=== PATIENT | female | born 1965 | race Two or more races ===

== ENCOUNTER → 2024-10-09 | Outpatient (CLI) | payer BC, SELFPAY ==
--- NOTE | 2024-10-09 14:30 | XR_ITS ---
Examination: Breast ultrasound, unilateral, left complete Date and time of exam: October 09, 2024 1430 hours INDICATIONS: Left breast sonogram May 16, 2024 12:00 nodule 5 mm 11:00 nodule 6 mm Technique: Real-time valle scale ultrasonographic imaging performed left breast including all 4 quadrants as well as nipple retroareolar and axillary region. Findings: 12:00 nodule circumscribed 6 x 5 mm 1:00 nodule lobular margins 7 x 6 mm IMPRESSION: BI-RADS Category 2: Benign findings
--- NOTE | 2024-10-09 15:00 | XR_ITS ---
Examination: Diagnostic digital mammography, unilateral, left Computer aided detection 3-D breast Tomosynthesis, unilateral Date and time of exam: October 09, 2024 1440 hours INDICATIONS: Mammogram May 16, 2024 focal asymmetry retroareolar region left breast Technique: Nonmagnified MLO, CC views of the left breast have been obtained, reconstructed from 3-D Tomosynthesis images. R2 computer aided detection program utilized for evaluation of suspicious masses and/or abnormal calcifications. 3-D Tomosynthesis images obtained. Findings: Scattered areas of fibroglandular density No suspicious mass depicted Impression: BI-RADS category 2: Benign findings Recommend yearly follow-up mammography
== END | disposition home or self-care (01) ==
PROVIDERS: PCP Specialist; Referring Provider Specialist; Visit Provider Specialist
DX: R92.322 Mammographic fibroglandular density, left breast (principal); N63.25 Unspecified lump in the left breast, overlapping quadrants; N63.21 Unspecified lump in the left breast, upper outer quadrant
CPT/HCPCS: 76641; 77061; 77065; G0279

== ENCOUNTER → 2025-04-21 | Outpatient (CLI) | payer BC, SELFPAY ==
[2025-04-21 11:28] LABS: Basophils # (Auto) 0.1 Thou/mm3 (0.0-0.2); Basophils % (Auto) 1 % (0-2.5); Eosinophils # (Auto) 0.3 Thou/mm3 (0.0-0.5); Eosinophils % (Auto) 5 % (0-10); Hematocrit 43.2 % (36.0-46.0); Hemoglobin 14.1 g/dL (12.0-16.0); Immature Granulocytes Auto 0.01 Thou/mm3 (0.00-0.00); Lymphocytes # (Auto) 2.8 Thou/mm3 (1.0-4.8); Lymphocytes % (Auto) 37 % (10-50); Mean Corpuscular HGB Conc 32.6 g/dl (31.0-37.0); Mean Corpuscular Hemoglobin 30.2 pg (25.0-35.0); Mean Corpuscular Volume 93 fL (80-100); Monocytes # (Auto) 0.6 Thou/mm3 (0.0-0.8); Monocytes % (Auto) 7 % (0-12); Neutrophils # (Auto) 3.7 Thou/mm3 (1.8-7.7); Neutrophils % (Auto) 50 % (37-80); Nucleated Red Blood Cell # 0.00 Thou/mm3 (0.00-0.00); Nucleated Red Blood Cell % 0 /100 WBC (0); Platelet Count 264 Thou/mm3 (140-440); RDW Standard Deviation 47.9 fL (36.4-46.3); Red Blood Count 4.67 Miln/mm3 (4.00-5.20); White Blood Count 7.5 Thou/mm3 (3.6-11.0)
[2025-04-21 11:38] LABS: Glucose Estimated Average 123 mg/dL (80-131); Hemoglobin A1C 5.9 % Hgb (4.8-6.0)
[2025-04-21 11:40] LABS: Iron 95 mcg/dL (50-170); Percent Iron Saturation 38 % (20-55); Total Iron Binding Capacity 245 mcg/dL (250-425); Unsaturated Iron Binding 150 (225-295)
[2025-04-21 11:41] LABS: Parathyroid Hormone Intact 251.7 pg/ml (18.5-88.0)
[2025-04-21 11:45] LABS: Alanine Aminotransferase 62 U/L (10-49); Albumin, Serum 4.4 gm/dL (3.4-4.8); Albumin/Globulin Ratio 1.5 (1.2-2.2); Alkaline Phosphatase 102 U/L (46-116); Anion Gap 10 (7-16); Aspartate Amino Transferase 42 U/L (0-34); BUN/Creatinine Ratio 9 Ratio (12-20); Bilirubin,Total 0.6 mg/dL (0.3-1.2); Blood Urea Nitrogen 12 mg/dL (9-23); Calcium 10.1 mg/dL (8.3-10.6); Calcium (Corrected) 10.1 mg/dL (8.5-10.1); Carbon Dioxide 26.7 mMol/L (20.0-31.0); Cardiac Risk Estimate 4.5 RATIO (3.7-5.6); Chloride 106 mMol/L (98-107); Cholesterol 206 mg/dL (132-200); Creatinine (Component) 1.3 mg/dL (0.6-1.3); Folate 15.13 ng/mL (>5.38); Globulin 3.0 gm/dL (2.3-3.5); Glucose 126 mg/dL (74-106); HDL Cholesterol 46 mg/dL (40-60); LDL Cholesterol,Calculated 121 mg/dL (0-130); Osmolality,Calculated 286 (275-295); Potassium 4.0 mMol/L (3.4-5.1); Sodium 143 mMol/L (136-145); Total Protein 7.4 gm/dL (5.7-8.2); Triglycerides 197 mg/dL (30-150); Vitamin B12 550 pg/mL (211-911); eGFR 47 See Note
[2025-04-24 06:24] LABS: Vitamin D, 25-OH, D2 <4 ng/mL; Vitamin D, 25-OH, D3 19 ng/mL; Vitamin D, 25-OH, Total 19 ng/mL (30-100)
== END | disposition home or self-care (01) ==
LOC: COPL 10:23
PROVIDERS: PCP Specialist; Referring Provider Specialist; Visit Provider Specialist
DX: I10 Essential (primary) hypertension (principal); N25.81 Secondary hyperparathyroidism of renal origin; R73.01 Impaired fasting glucose; D50.8 Other iron deficiency anemias
CPT/HCPCS: 36415; 80053; 80061; 82306; 82607; 82746; 83036; 83540; 83550; 83970; 85025

== ENCOUNTER → 2025-07-03 | Outpatient (CLI) | payer BC, SELFPAY ==
--- NOTE | 2025-07-03 14:00 | XR_ITS ---
Examination: Bone densitometry Date and time of exam: July 03, 2025, 1408 hours INDICATIONS: Menopause age 47 hysterectomy age 58 vitamin D 1 month, diagnosis renal cell carcinoma Technique: Lumbar spine and hip total bone mineralization values of an calculated. Peak reference and age match control results have been displayed. Findings: Lumbar spine total bone mineralization is 1.034 gm/cm2. This is 0.1 standard deviations below peak reference. This is 1.4 standard deviations above age-matched controls. Hip total bone mineralization is 1.121 gm/cm2 This is 1.2 standard deviations above peak reference. This is 2.2 standard deviations above age-matched controls Impression: There is normal mineralization based on lumbar spine measurements. There is normal mineralization based on hip measurements Lumbar mineralization is decreased 3.0% compared with December 15, 2021 Hip mineralization is decreased 8.8% compared with December 15, 2021
--- NOTE | 2025-07-03 14:30 | XR_ITS ---
Examination: Abdomen sonogram, complete Date and time of exam: 07/03/2025 at 143 8:00 p.m Comparison study 10/26/2021 INDICATION: Abnormal liver function studies. Technique: Multiple real-time grayscale transabdominal sonographic images of the abdomen have been obtained. Findings: There is major, very marked abnormal increased echogenicity noted throughout the liver indicating severe fatty infiltration of the liver and/or significant hepatocellular disease. There is also definite enlargement of the liver, with convex bulging anterior and posterior margins of the right lobe. Patient is status post cholecystectomy common bile duct measures 0.41 cm in diameter which is perfectly normal the size of the portal veins and hepatic veins, and the directional color flow within these veins is normal. No abnormalities are seen in the region of the head or proximal body of the pancreas, although overall all of the pancreas is really not visualized all that well. The abdominal aorta appears normal as does the inferior vena cava. No specific abnormalities are seen in the right kidney although its size is smaller than normal, the patient is status post a partial nephrectomy in the past. The size and appearance of the left kidney are entirely normal, its length is 10 cm and the cortical thickness is 1.6 cm. There is normal color flow vascularity throughout the entire left kidney. Spleen size is perfectly normal. No ascites is seen. IMPRESSION: 1. Status post cholecystectomy. Major abnormal increased echogenicity throughout the liver consistent with very prominent fatty infiltration and/or hepatocellular disease. Liver is definitely moderately enlarged Tube the patient is status post partial right nephrectomy several years ago. 3 in all other respects no abnormalities are identified
== END | disposition home or self-care (01) ==
LOC: CDIM 13:30
PROVIDERS: Referring Provider Specialist; Visit Provider Specialist
DX: Z13.820 Encounter for screening for osteoporosis (principal); M85.89 Other specified disorders of bone density and structure, multiple sites; K76.89 Other specified diseases of liver; Z78.0 Asymptomatic menopausal state; C64.1 Malignant neoplasm of right kidney, except renal pelvis; Z90.49 Acquired absence of other specified parts of digestive tract; Z98.890 Other specified postprocedural states
CPT/HCPCS: 76700; 77080

== ENCOUNTER → 2025-07-10 | Outpatient (CLI) | payer BC, SELFPAY ==
[2025-07-10 10:00] LABS: Calcium, Ionized 4.8 mg/dL (4.6-5.6)
[2025-07-10 10:15] LABS: Sed Rate (ESR) 19 mm/hr (0-30)
[2025-07-10 10:20] LABS: Parathyroid Hormone Intact 156.7 pg/ml (18.5-88.0)
[2025-07-10 10:30] LABS: Alanine Aminotransferase 57 U/L (10-49); Albumin, Serum 4.7 gm/dL (3.4-4.8); Albumin/Globulin Ratio 1.4 (1.2-2.2); Alkaline Phosphatase 105 U/L (46-116); Anion Gap 12 (7-16); Aspartate Amino Transferase 42 U/L (0-34); BUN/Creatinine Ratio 8 Ratio (12-20); Bilirubin,Total 0.5 mg/dL (0.3-1.2); Blood Urea Nitrogen 10 mg/dL (9-23); C-Reactive Protein < 0.5 mg/dL (0.0-0.9); Calcium 9.5 mg/dL (8.3-10.6); Calcium (Corrected) 9.5 mg/dL (8.5-10.1); Carbon Dioxide 27.3 mMol/L (20.0-31.0); Chloride 105 mMol/L (98-107); Creatinine (Component) 1.3 mg/dL (0.6-1.3); Globulin 3.3 gm/dL (2.3-3.5); Glucose 112 mg/dL (74-106); Osmolality,Calculated 286 (275-295); Potassium 4.0 mMol/L (3.4-5.1); Sodium 144 mMol/L (136-145); Total Protein 8.0 gm/dL (5.7-8.2); eGFR 47 See Note
[2025-07-10 11:04] LABS: Hepatitis A Antibody IgM Non Reactive (Non React); Hepatitis B Core Antibody IgM Non Reactive (Non React); Hepatitis B Surface Antigen Non Reactive (Non React); Hepatitis C Antibody Non Reactive (Non React); Vitamin D 25 Hydroxy Total 55.1 ng/mL (7.3-40.2)
== END | disposition home or self-care (01) ==
LOC: COPL 09:11
PROVIDERS: PCP Specialist; Referring Provider Specialist; Visit Provider Specialist
DX: E21.3 Hyperparathyroidism, unspecified (principal); R74.01 Elevation of levels of liver transaminase levels
CPT/HCPCS: 36415; 80053; 80074; 82306; 82330; 83970; 85652; 86140